=== PATIENT | female | born 1980 | race Hispanic/Latino ===

== ENCOUNTER → 2024-01-23 | Day surgery (SDC) | payer OTHER ==
[~2024-01-23] MED LIST: DEXMEDETOMIDINE HCL 2 ML ONE; FAMOTIDINE20 MG PO; LIDOCAINE HCL 2% LOCAL INJ 5 ML SDV VIAL INJ ONE; MIDAZOLAM HCL 2 MG/2 ML VIAL ONE; MIRALAX17 GM PO; PROPOFOL IV EMULSION 10 MG/ML 20 ML VIAL ONE; SODIUM CHLORIDE 0.9% 100 ML ONE
[2024-01-23] MEDS: LACTATED RINGER'S 1,000 ML ONE (07:05)
[2024-01-23 08:45] VITALS: BP 100/70; PULSE 66; RESP 16; TEMP 97.2; O2SAT 100
== END | disposition home or self-care (01) ==
LOC: OR 06:30
PROVIDERS: ATTEND Internal Medicine Gastroenterology
DX: Z12.11 Encounter for screening for malignant neoplasm of colon (principal); D12.0 Benign neoplasm of cecum; D12.3 Benign neoplasm of transverse colon; K59.00 Constipation, unspecified; K64.8 Other hemorrhoids; R12 Heartburn; Z80.0 Family history of malignant neoplasm of digestive organs
CPT/HCPCS: 45384; 45385; 81025; J2003; J2250; J7050